=== PATIENT | male | born 1980 | race Caucasian/White ===

== ENCOUNTER 2023-11-10 23:20 | Emergency (ER) | payer OTHER, SELFPAY ==
[2023-11-10 23:39] VITALS: BP 140/82; PULSE 94; O2SAT 99
[2023-11-10 23:42] VITALS: BP 117/68; PULSE 94; RESP 18; TEMP -17.7; TEMP 0; O2SAT 99; BMI 26.8
--- NOTE | 2023-11-10 23:44 | ED.ALCOHOL ---
HPI - Alcohol General Chief Complaint: ETOH/Substance Use Stated Complaint: ETOH Time Seen by Provider: 11/10/23 23:42 Source: patient Mode of arrival: ambulatory Limitations: no limitations History of Present Illness HPI narrative: Patient alcoholic homeless no where to go , [facility] was called sent the patient here for placement/detox. patient denied any SI or depression does not need any help does want to sleep here Related Data Allergies Allergy/AdvReac Type Severity Reaction Status Date / Time No Known Allergies Allergy Verified 11/10/23 23:42 Review of Systems Review of Systems: Yes all other systems are reviewed and are negative Physical Exam ED Vital Signs: Vital Signs - 24 hr 11/10/23 23:42 11/11/23 00:05 Temperature 0 F L 97.4 F Pulse Rate 94 89 Respiratory Rate 18 16 Blood Pressure 117/68 104/67 Pulse Oximetry 99 98 Oxygen Delivery Method Room Air Room Air BMI result Body Mass Index 26.8 Appearance: Alert. Oriented X3. No acute distress. etoh++ Eyes: PERRLA, No Nystagmus ENT: Pharynx normal. Oral Mucosa moist Neck: Normal inspection. Neck supple. CVS: Normal heart rate and rhythm. Pulses normal. Respiratory: No respiratory distress. Equal air entry bilateral, no wheezing/rales/rhonchi Abdomen: Soft and nontender. Bowel sounds are present, no mass palpable, no CVA tenderness Skin: Skin warm and dry. Normal skin color. Normal skin turgor. Extremities: No lower extremity edema. No calf tenderness psych; denies significant depression or SI Neuro: Oriented X 3. No motor deficit. No sensory deficit.No cerebellar signs , cranial nerves II-XII intact Medical Decision Making Medical Decision Making MDM Narrative: Patient intoxicated able to ambulate for unsteady on his feet homeless will keep him in the ER till a.m. gets sober patient denied any depression no SI refused any help to go to detox refused any labs vitals are stable Differential Diagnosis Differential Diagnoses: The differential diagnosis associated with the presentation includes Polysubstance abuse/alcohol intoxication Discharge Plan Discharge Clinical Impression: Alcoholic intoxication Patient Disposition: Still a Patient Instructions: Abuse of Alcohol (ED) Additional Instructions: Stop drinking alcohol Follow with detox
[2023-11-11 00:05] VITALS: BP 104/67; PULSE 89; RESP 16; TEMP 36.3; O2SAT 98
[2023-11-11 02:00] VITALS: RESP 16
[2023-11-11 03:46] VITALS: BP 123/82; PULSE 74; RESP 16; TEMP 36.8; O2SAT 100
[2023-11-11 03:59] VITALS: BP 123/82; PULSE 74; RESP 16; TEMP 36.8; O2SAT 100
== END 2023-11-11 03:50 | disposition home or self-care (01) ==
PROVIDERS: Emergency Provider Emergency Medicine Emergency Medical Services
DX: F10.129 Alcohol abuse with intoxication, unspecified (principal); Y90.9 Presence of alcohol in blood, level not specified; Z59.00 Homelessness unspecified
CPT/HCPCS: 99283